=== PATIENT | male | born 2005 | race Two or more races ===

== ENCOUNTER 2023-06-26 01:19 | Emergency (ER) | payer MEDICAID, OTHER ==
[~2023-06-26] VITALS: Ht 172.7 cm; Wt 54.5 kg
[2023-06-26 01:50] VITALS: BP 94/52; PULSE 69; RESP 18; TEMP 97.9; O2SAT 98
[2023-06-26] MEDS ORDERED: CLINDAMYCIN HCL 150 MG CAP PO ONE (02:00)
[2023-06-26] MEDS ORDERED: DexAMETHasone SOD PHOS 10MG/1ML VIAL INJ IM ONE (02:00)
[2023-06-26] MEDS ORDERED: FAMOTIDINE 20 MG TAB PO ONE (02:00)
[2023-06-26] MEDS ORDERED: diphenhdrAMINE HCL 25 MG CAP PO ONE (02:00)
[2023-06-26] MEDS ORDERED: PRED20TA2 PO (02:13)
[2023-06-26] MEDS ORDERED: CLIN300C70 PO (02:13)
[2023-06-26] MEDS ORDERED: DIPH25TA54 PO (02:13)
== END 2023-06-26 03:43 | disposition home or self-care (01) ==
LOC: ER 01:19
DX: L03.114 Cellulitis of left upper limb (principal); Z91.030 Bee allergy status
CPT/HCPCS: 96372; 99284; J1100